=== PATIENT | female | born 1990 | race Two or more races ===

== ENCOUNTER 2017-12-27 16:21 | Inpatient (IN) | END 2017-12-27 17:14 | disposition left against medical advice (07) | DRG 832 ==

== ENCOUNTER 2018-06-03 18:37 | Emergency (ER) | payer MEDICAID ==
[~2018-06-03] VITALS: Ht 157.5 cm; Wt 63.0 kg
[2018-06-03 18:56] VITALS: BP 121/65; PULSE 82; RESP 18; Ht 157.5 cm; Wt 63.0 kg
[2018-06-03] MEDS ORDERED: IBUP-1542 PO (19:24)
[2018-06-03] MEDS ORDERED: ERYT1OIN6 LEFT EYE (19:24)
[2018-06-03] MEDS ORDERED: IBUPROFEN 800 MG TAB PO ONE (19:30)
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
== END 2018-06-03 21:07 | disposition home or self-care (01) ==
LOC: E/R 18:37
DX: S05.02XA Injury of conjunctiva and corneal abrasion without foreign body, left eye, initial encounter (principal); H00.014 Hordeolum externum left upper eyelid; F17.210 Nicotine dependence, cigarettes, uncomplicated; W50.0XXA Accidental hit or strike by another person, initial encounter; Y92.9 Unspecified place or not applicable
CPT/HCPCS: Z7502; Z7610; 99282